=== PATIENT | male | born 1940 | race Caucasian/White ===

== ENCOUNTER → 2023-07-09 10:25 | Outpatient (REF) | payer MEDICARE, BC, SELFPAY | LOC: RAD 10:25 | PROVIDERS: ATTENDING PHYSICIAN Internal Medicine Geriatric Medicine | DX: Z00.00 Encounter for general adult medical examination without abnormal findings (principal); R06.00 Dyspnea, unspecified; C61 Malignant neoplasm of prostate; L97.319 Non-pressure chronic ulcer of right ankle with unspecified severity; I10 Essential (primary) hypertension; N52.35 Erectile dysfunction following radiation therapy; N40.1 Benign prostatic hyperplasia with lower urinary tract symptoms; E78.5 Hyperlipidemia, unspecified; J30.9 Allergic rhinitis, unspecified; M54.12 Radiculopathy, cervical region; L30.9 Dermatitis, unspecified; E55.9 Vitamin D deficiency, unspecified; J84.10 Pulmonary fibrosis, unspecified | CPT/HCPCS: 71046; 72052 ==

== ENCOUNTER → 2023-07-25 18:17 | Outpatient (REF) | payer MEDICARE, BC, SELFPAY | LOC: MRI 18:17 | PROVIDERS: ATTENDING PHYSICIAN Internal Medicine Geriatric Medicine | DX: M54.12 Radiculopathy, cervical region (principal); M54.2 Cervicalgia | CPT/HCPCS: 72141 ==

== ENCOUNTER → 2023-07-26 13:12 | Outpatient (REF) | payer MEDICARE, BC, SELFPAY ==
--- NOTE | 2023-07-26 14:43 | CARDSERVDEF ---
Echocardiogram with Definity completed after protocol screening completed. Allergies verified. Pt here for Stress Echo
Patent IV site: Right antecubital median 22 G PC
IV site flushed with 0.9% NaCl pre and post administration.
Diluted bolus method utilized to enhance visualization of ventricular blanton.
Total volume given: __5__ mL
Patient tolerated all procedures well without complications.
Heplock D/ C ed by Clif Ferguson loader technician.
== END ==
LOC: RCS 13:12
PROVIDERS: ATTENDING PHYSICIAN Internal Medicine Geriatric Medicine
DX: R06.00 Dyspnea, unspecified (principal); Z00.00 Encounter for general adult medical examination without abnormal findings; C61 Malignant neoplasm of prostate; L97.319 Non-pressure chronic ulcer of right ankle with unspecified severity; I10 Essential (primary) hypertension; N52.35 Erectile dysfunction following radiation therapy; N40.1 Benign prostatic hyperplasia with lower urinary tract symptoms; E78.5 Hyperlipidemia, unspecified; L30.9 Dermatitis, unspecified; E55.9 Vitamin D deficiency, unspecified; J84.10 Pulmonary fibrosis, unspecified; R07.9 Chest pain, unspecified
CPT/HCPCS: 93017; 93350; Q9957

== ENCOUNTER → 2023-08-14 13:09 | Outpatient (REF) | payer MEDICARE, BC, SELFPAY | LOC: RSP 13:09 | PROVIDERS: ATTENDING PHYSICIAN Internal Medicine Geriatric Medicine | DX: R06.00 Dyspnea, unspecified (principal) | CPT/HCPCS: 94727; 94729; 88738; 94010 ==

== ENCOUNTER → 2023-11-23 17:31 | Outpatient (REF) | payer MEDICARE, BC, SELFPAY | LOC: PAVMRI 17:31 | PROVIDERS: ATTENDING PHYSICIAN Internal Medicine Geriatric Medicine | DX: M25.511 Pain in right shoulder (principal); G89.29 Other chronic pain | CPT/HCPCS: 73221 ==

== ENCOUNTER → 2024-02-12 16:27 | Outpatient (REF) | payer MEDICARE, BC, SELFPAY | LOC: RAD 16:27 | PROVIDERS: ATTENDING PHYSICIAN Internal Medicine Geriatric Medicine | DX: I10 Essential (primary) hypertension (principal); R06.00 Dyspnea, unspecified; L97.319 Non-pressure chronic ulcer of right ankle with unspecified severity; N52.35 Erectile dysfunction following radiation therapy; N40.1 Benign prostatic hyperplasia with lower urinary tract symptoms; E78.5 Hyperlipidemia, unspecified; J30.9 Allergic rhinitis, unspecified; M54.12 Radiculopathy, cervical region; L30.9 Dermatitis, unspecified; Z13.89 Encounter for screening for other disorder; E55.9 Vitamin D deficiency, unspecified; J84.10 Pulmonary fibrosis, unspecified; E03.9 Hypothyroidism, unspecified; G89.29 Other chronic pain; M25.511 Pain in right shoulder | CPT/HCPCS: 73502 ==

== ENCOUNTER 2024-04-10 15:44 | Outpatient (RCR) | payer MEDICARE, BC, SELFPAY | END 2024-04-10 23:59 | disposition home or self-care (01) | LOC: RPT 15:44 | PROVIDERS: ATTENDING PHYSICIAN Internal Medicine Geriatric Medicine | DX: M25.511 Pain in right shoulder (principal); Z73.6 Limitation of activities due to disability | CPT/HCPCS: 97010; 97110; 97112; 97162 ==

== ENCOUNTER 2024-04-13 14:23 | Emergency (ER) | payer MEDICARE, BC, SELFPAY ==
[2024-04-13] VITALS (10 sets, daily range): BP systolic 142–204; BP diastolic 77–119; BMI 30.3
[2024-04-13 14:43] LABS: % Basophils 0.7 % (0-2); % Eosinophils 2.3 % (0-6); % Immature Granulocytes 0.3 % (0-0.5); % Lymphocytes 27.6 % (20.5-51.1); % Neutrophils 60.1 % (42.2-75.2); Absolute Eosinophils 0.1 10^3/uL (0-0.7); Absolute Lymphocytes 1.7 10^3/uL (1.2-3.4); Absolute Monocytes 0.6 10^3/uL (0.1-0.6); Absolute Neutrophils 3.7 10^3/uL (1.4-6.5); Hematocrit 40.7 % (39.0-52.0); Hemoglobin 14.2 g/dL (13.0-18.0); Mean Corp Hgb Conc. 34.9 g/dL (33.0-37.0); Mean Corpuscular Hgb 30.9 pg (27.0-31.0); Mean Corpuscular Volume 88.5 fL (80.0-94.0); Mean Platelet Volume 9.3 fL (7.4-10.4); Nucleated Red Blood Cells % 0 % (-); Platelet Count 192 10^3/uL (130-400); Red Cell Dist. Width 13.5 % (11.5-14.5); White Blood Cell Count 6.1 10^3/uL (4.8-10.8)
[2024-04-13 15:03] LABS: ALT (SGPT) 28 U/L (0-50); AST (SGOT) 29 U/L (17-59); Albumin 4.9 g/dl (3.5-5.0); Alkaline Phosphatase 69 U/L (38-126); Blood Urea Nitrogen 29 mg/dl (9-20); Calcium 9.5 mg/dl (8.4-10.2); Carbon Dioxide 25 mmol/L (22-30); Chloride 106 mmol/L (98-107); Glucose 83 mg/dl (70-99); Potassium 4.1 mmol/L (3.5-5.1); Sodium 141 mmol/L (135-145); Total Bilirubin 1.1 mg/dl (0.2-1.3); Total Protein 7.6 g/dl (6.3-8.2); eGFR > 60.00
[2024-04-13 15:14] LABS: NT-proBNP 230 pg/ml; Troponin I < 0.012 ng/ml
--- NOTE | 2024-04-13 15:25 | EDRN ---
Dr. Mckeon currently at the [facility] bedside
--- NOTE | 2024-04-13 15:38 | ED.GENMED ---
History of Present Illness
General
Chief Complaint: Blood Pressure Problem
Source: patient and family
Exam Limitations: none
Time Seen by Provider: 04/13/24 15:24
History of Present Illness
History of Present Illness:
See MDM
Past History
Past History
ED Past Medical History: Cancer (Prostate cancer), GERD (Hiatal hernia), HTN and Hypercholesterolemia
ED Past Surgical History: Orthopedic and Other (Hernia repair)
Social History
Tobacco: Former smoker
Alcohol: Daily
Drug: None
Personal:
Living: with family
Employment: Retired
Family History
Family History: Hypertension and Cancer
Phy Exam
Physical Exam
Physical Exam:
See MDM
Course
Orders/Labs/Results
Orders:
Orders
04/13/24 14:25
Electrocardiogram (*1) Urgent
Reason for Study: Palpitations
EKG- Treatment ONCE
04/13/24 14:36
BNP [NT-proBNP] Urgent
Complete Blood Count/With Diff Urgent
Comprehensive Metabolic Panel Urgent
Troponin I Urgent
04/13/24 15:37
0.9% Sodium Chloride 1000 ml [Nss] 1,000 ml IV BOLUS
HydrALAZINE [Apresoline] 10 mg IV NOW STA
04/13/24 15:38
CT Head W/o Iv Contrast Urgent
Comment:
Reason For Exam: Headache, elevated BP
04/13/24 16:01
HydrALAZINE [Apresoline] 5 mg IV NOW STA
Abnormal Lab Results
04/13/24
14:36
RBC 4.60 L 10^6/uL
(4.70-6.10)
BUN 29 H mg/dl
(9-20)
04/13/24 14:36
04/13/24 14:36
Vital Signs
Initial and Last Documented VS:
Initial Vital Signs
Temp Pulse Resp BP Pulse Ox
97.7 F 90 20 204/115 99
04/13/24 14:26 04/13/24 14:26 04/13/24 14:26 04/13/24 14:26 04/13/24 14:26
Last Documented Vital Signs
Temp Pulse Resp BP Pulse Ox
97.5 F 80 23 142/83 97
04/13/24 15:23 04/13/24 16:30 04/13/24 16:30 04/13/24 16:30 04/13/24 16:30
MDM/Problems Addressed
Differential Diagnosis Includes:
HPI and MDM Narrative:
83-year-old male presenting for evaluation of headache and elevated blood pressure. Daughter at bedside states he has been feeling unwell for the past several days to weeks. They are more cognizant of his blood pressure and his blood pressure has
been 160s/100s. They called the PCP office and was told to for 1 day. This apparently did not change the blood pressure at all. Patient now developing headache and pressure behind his eyes. He denies chest pain or shortness of breath. Daughter
believes he does not drink enough water. They are mostly concerned for the uncontrolled blood pressure despite doubling the blood pressure medicine
On exam, he is well-appearing nontoxic. He is mildly dry. Will give IV fluids. He has no focal deficit. Blood work was done prior to my evaluation and there is no evidence of endorgan damage.
Given his age and complaint, will obtain CT head. Will give dose of IV hydralazine to see if his blood pressure improves and to see if that improves his headache. If it does, will write for hydralazine as needed until his doctor can reevaluate his
blood pressure
Physical exam
General: Well appearing and non-toxic
HEENT: protecting airway. Pupils equal reactive. Mildly dry mucous membrane
Neck: appears supple
CV: No evidence of cyanosis. Regular rate and rhythm
Resp: No accessory muscle use. Lungs clear
Abd: Non-distended
Extremities: No deformities
Neuro: alert
Psych: Normal affect
Skin: Intact
Problems Addressed including Acute and Chronic Conditions affecting care:
1. Hypertension
Acuity: acute
Prognosis: stable
Details: No evidence of endorgan damage. Will give dose of hydralazine
2. Headache
Acuity: acute
Prognosis: stable
Details: Potentially related to high blood pressure and dehydration. Will obtain CT head and give IV fluids
Updates
After IV fluids and hydralazine, patient feeling better. Blood pressure improving. Discussed hydralazine as needed until PCP can reevaluate symptoms
Differential Diagnosis (but not limited to): Medication noncompliance, dehydration, viral syndrome
Testing considered: Chest x-ray but lungs are clear
Drug therapy (if applicable): OTC meds, please see d/c instruction regarding Rx drugs
Amount and/or Complexity of Data Reviewed
Clinical info obtained from: Patient
External data reviewed: N/A
Labs I independently reviewed (but not limited to): Electrolytes and troponin negative
Radiology: The CT scan was personally and independently reviewed. In addition, official CT report reviewed.
Pulse Ox: not hypoxic
EKG independently reviewed: Sinus rhythm, left axis, no STEMI
[place]: Sinus rhythm
Critical Care: N/A
Risk of Complication:
Social Determinants of health: Good social support
Discussed with other providers: N/A
Escalation of Care includes Admit/Obs: After being observed in the Emergency Department, pt stable for discharge.
Occasional wrong word or 'sound a like' substitutions may have occurred due to the inherent limitations of voice recognition software. Read the chart carefully and recognize, using context, where substitutions have occurred.
*Critical Care Note
Total Time (30-74mins, 75-104mins- exclusive of procedures): Not Applicable
ED Attending Note
-
Portions of this chart may have been created with voice recognition software.� Occasional wrong word or��sound alike� substitutions may have occurred due to the inherent limitations of voice recognition software.
Discharge Plan
Departure
Patient Disposition: Home (Routine Discharge)
Date of Disposition: 04/13/24
Time of Disposition: 16:53
Patient with high blood pressure during this ER visit?: Yes
Discharge Problem:
HTN (hypertension)
Instructions: High Blood Pressure (DC), BLOOD PRESSURE
Prescriptions:
New
hydralazine 25 mg tablet
25 mg PO ONCE Qty: 30 0RF
No Action
fenofibrate nanocrystallized 48 MG tablet
48 mg PO DAILY
calcium carbonate-vitamin D3 1 EACH capsule
1 ea PO DAILY
multivitamin with folic acid [Tab-A-Jojo] 1 TABLET tablet
1 tab PO DAILY
ascorbic acid (vitamin C) [Vitamin C] 1,000 mg Tablet
1 g PO DAILY
amlodipine-benazepril 5-10 mg Capsule
1 cap PO DAILY
zinc 50 mg Tablet
50 mg PO DAILY
PreserVision AREDS-2 250-90-40-1 mg Capsule
1 tab PO DAILY
Referrals:
Jhonny Haddad MD [Family Provider] -
Activity Restrictions/Additional Instructions:
Please return for any worsening symptoms.
You may return at any time if you have further concerns.
Please follow up with your doctor at the first available appointment, preferably this week.
Please discuss your elevated blood pressure. Until you see your doctor, please double your blood pressure medication in the morning. Please take your blood pressure mid afternoon. If your reading is greater than 160/90, take a dose of the newly
prescribed hydralazine.
Thank you for choosing [facility].
Interventions
Interventions:
*Risk Screen - Suicide Last Done: 04/13/24 15:23
*General Assessment Last Done: 04/13/24 14:26
*Neglect/Abuse Screening Last Done: 04/13/24 15:23
ED- Fall Risk Assessment Last Done: 04/13/24 15:23
*ED COVID-19 Vaccine History Last Done: 04/13/24 15:23
ED- Cardiac Assessment Last Done: 04/13/24 15:23
ED- Neurological Assessment Last Done: 04/13/24 15:23
ED- Pulmonary Assessment Last Done: 04/13/24 15:23
Discharge Date and Time
Print Language: ICELANDIC
[2024-04-13] MEDS: APRESOLINE 5 MG IV (16:08)
[2024-04-13] MEDS: NSS 1000 IV (16:09)
[2024-04-13] MEDS: APRESOLINE 25 MG PO (17:40)
== END 2024-04-13 18:08 | disposition home or self-care (01) ==
LOC: EMR 14:23
PROVIDERS: Emergency Medicine; EMERGENCY PHYSICIAN Student in an Organized Health Care Education/Training Program; FAMILY PHYSICIAN Internal Medicine Geriatric Medicine
DX: I10 Essential (primary) hypertension (principal); E78.00 Pure hypercholesterolemia, unspecified; Z82.49 Family history of ischemic heart disease and other diseases of the circulatory system; Z85.46 Personal history of malignant neoplasm of prostate; Z87.891 Personal history of nicotine dependence
CPT/HCPCS: 99284; 96374; 96376; 96361; 70450; 80053; 83880; 84484; 85025; 93005

== ENCOUNTER → 2024-05-06 07:34 | Outpatient (REF) | payer MEDICARE, BC, SELFPAY | LOC: RAD 07:34 | PROVIDERS: ATTENDING PHYSICIAN Internal Medicine Geriatric Medicine | DX: R06.00 Dyspnea, unspecified (principal); L97.319 Non-pressure chronic ulcer of right ankle with unspecified severity; N52.35 Erectile dysfunction following radiation therapy | CPT/HCPCS: 76770; 93975 ==

== ENCOUNTER 2024-05-08 14:01 | Outpatient (RCR) | payer MEDICARE, BC, SELFPAY | END 2024-05-08 23:59 | disposition home or self-care (01) | LOC: RPT 14:01 | PROVIDERS: ATTENDING PHYSICIAN Internal Medicine Geriatric Medicine | DX: M25.511 Pain in right shoulder (principal); Z73.6 Limitation of activities due to disability | CPT/HCPCS: 97110; 97112; 97140 ==

== ENCOUNTER 2024-05-27 15:56 | Outpatient (RCR) | payer MEDICARE, BC, SELFPAY | END 2024-05-27 23:59 | disposition home or self-care (01) | LOC: RPT 15:56 | PROVIDERS: ATTENDING PHYSICIAN Internal Medicine Geriatric Medicine | DX: M25.511 Pain in right shoulder (principal); Z73.6 Limitation of activities due to disability | CPT/HCPCS: 97010; 97110; 97112 ==